=== PATIENT | female | born 1980 | race Caucasian/White ===

== ENCOUNTER 2017-08-26 23:06 | Emergency (ER) | payer MEDICAID ==
[2017-08-26] MEDS ORDERED: NS 1,000 ML IV ONE (23:21)
[2017-08-26] MEDS ORDERED: HYOSCYAMINE SULFATE 0.125 MG TAB PO ONE (23:27)
[2017-08-26] MEDS ORDERED: MAG HYDROX/AL HYDROX/SIMETH 30 ML UDCUP PO ONE (23:27)
[2017-08-26] MEDS ORDERED: LIDOCAINE 2% VISCOUS 15 ML UDCUP PO ONE (23:27)
--- NOTE | 2017-08-26 23:27 | EDPHY ---
H & P Stated Complaint: dizzy, SOB, chest palpitaions, pressure HPI/ROS: HPI CHIEF COMPLAINT: Chest pain, shortness of breath, epigastric pain HISTORY OF PRESENT ILLNESS: Patient very pleasant 37-year-old female does have a history of thyroid disease she presents emergency room with epigastric discomfort she describes as an achy sensation. It is reproducible on exam. When you press in her epigastric region it causes her discomfort. She states this discomfort goes into her chest. She states she feels anxious and has associated shortness of breath with this. Additionally reports palpitations. She denies pleuritic pain. Denies vomiting. Denies pleuritic pain. Denies diarrhea. Patient denies previous cardiovascular disease. Patient reports that her epigastric and chest pain discomfort started right around dinner time. 9:00 p.m. she had a hot dog, additionally she had guacamole and chips. Past Medical History: Thyroid disease Past Surgical History: No recent surgery Social History: Denies daily use drugs alcohol tobacco products. Family History: Noncontributory ROS REVIEW OF SYSTEMS: A comprehensive 10 point review of systems is otherwise negative aside from elements mentioned in the history of present illness. Exam Constitutional appears well nontoxic, slightly anxious triage nursing summary reviewed, vital signs reviewed, awake/alert. Eyes normal conjunctivae and sclera, EOMI, PERRLA. HENT normal inspection, atraumatic, moist mucus membranes, no epistaxis, neck supple/ no meningismus, no raccoon eyes. Respiratory clear to auscultation bilaterally, normal breath sounds, no respiratory distress, no wheezing. Cardiovascular rate normal, regular rhythm, no murmur, no edema, distal pulses normal. Gastrointestinal tender palpation epigastric right upper quadrant,, no rebound , no guarding, normal bowel sounds, no distension, no pulsatile mass. Genitourinary no CVA tenderness. Musculoskeletal no midline vertebral tenderness, full range of motion, no calf swelling, no tenderness of extremities, no meningismus, good pulses, neurovascularly intact. Skin pink, warm, & dry, no rash, skin atraumatic. Neurologic awake, alert and oriented x 3, AAOx3, moves all 4 extremities equally, motor intact, sensory intact, CN II-XII intact, normal cerebellar, normal vision, normal speech. Psychiatric anxious, normal mood/affect. Heme/Lymph/Immune no lymphadenopathy. Differential Diagnosis: Differential diagnosis includes but is not limited to and in no particular order: Bowel obstruction, appendicitis, gallbladder disease, diverticulitis, colitis, enteritis, perforated viscus, gastritis, GERD , esophagitis, urinary tract infection, pyelonephritis, kidney stones, ACS, atypical chest pain, pneumothorax, pneumonia, pulmonary embolism, aortic dissection, congestive heart failure, tumor, musculoskeletal pain, esophageal pain, GERD, peptic ulcer disease, pancreatitis Medical Decision Making: Plan for this patient IV establishment with IV fluid bolus, GI cocktail for chest discomfort to see if this improves her, ultrasound right upper quadrant and epigastric region, abdominal blood work. Re-evaluate. Obtain EKG and chest x-ray. Re-evaluation: EKG interpretation by me on record in [facility] system. Impression time of EKG 6: Sinus rhythm rate of 67. No acute ischemic change. Specifically no ST elevation no ST depression no T-wave abnormalities. Unremarkable EKG. Ultrasound of the right upper quadrant. The results of the study are gallbladder sludge present otherwise unremarkable ultrasound. I discussed the results of this study with the radiologist Dr. Best ED x-ray chest one view negative for acute cardiopulmonary disease. 0132: Re-evaluation this time patient resting. She does feel better after GI cocktail. Still has very mild epigastric pain 1/10 at this time. I have ordered her IV Pepcid and re-evaluation. Blood work has been reviewed is unremarkable except for mildly elevated lipase. Ultrasound shows gallbladder sludge but no stones. Most likely cause of pain is gastritis versus early pancreatitis versus gallbladder sludge. EKG interpretation by me on record in [email or web address] system. Impression repeat EKG ; 1:50 a.m., sinus rhythm rate of 60 no acute ischemic change appreciated. Repeat troponin is negative. Patient is feeling much better after IV Pepcid she is requesting discharge. Chest x-ray one view reviewed negative for acute cardiopulmonary disease. 0243: Re-evaluation at this time patient resting comfortably. She states she feels much better after IV Pepcid. She would like to go home. Prescription prescribed for Zantac Went over gallbladder disease with her. Additionally she understands return emergency room she develops worsening abdominal pain fever vomiting. Stay away from fatty greasy foods. She is agreeable this plan. Source: Patient - Personal History LMP (Females 10-55): Unknown Current Tetanus Diphtheria and Acellular Pertussis (TDAP): Unsure - Medical/Surgical History Hx Asthma: No Hx Chronic Respiratory Disease: No Hx Diabetes: No Hx Cardiac Disease: No Hx Renal Disease: No Hx Cirrhosis: No Hx Alcoholism: No Hx HIV/AIDS: No Hx Splenectomy or Spleen Trauma: No Other PMH: thyroid - Social History Smoking Status: Never smoked Constitutional: Initial Vital Signs Temperature (C) 36.9 C 08/26/17 23:11 Heart Rate 79 08/26/17 23:11 Respiratory Rate 18 08/26/17 23:11 Blood Pressure 105/70 08/26/17 23:11 O2 Sat (%) 98 08/26/17 23:11 O2 Delivery Mode Room Air Allergies/Adverse Reactions: amoxicillin Allergy (Verified 08/26/17 23:09) gluten Allergy (Verified 08/26/17 23:09) Sulfa (Sulfonamide Antibiotics) Allergy (Verified 08/26/17 23:09) Home Medications: Medication Instructions Recorded Ranitidine HCl [Zantac] 150 mg PO DAILY #30 tablet 08/27/17 Medical Decision Making - Diagnostics Imaging Results: Imaging Impressions Abdomen Ultrasound 08/26/17 23:21 Impression: Gallbladder sludge. No cholelithiasis, biliary dilation or free fluid. Findings discussed with Emergency Department physician, Hector Dave MD at 08/26/2017 23:52. Chest X-Ray 08/26/17 23:22 Impression: Clear lungs. Negative portable chest. - Data Points Laboratory Results: Laboratory Results 08/26/17 23:30 08/26/17 23:30 08/27/17 08/26/17 08/26/17 01:45 23:30 23:30 WBC RBC Hgb Hct MCV MCH MCHC RDW Plt Count MPV Neut % (Auto) Lymph % (Auto) Whitfield % (Auto) Eos % (Auto) Baso % (Auto) Nucleat RBC Rel Count Absolute Neuts (auto) Absolute Lymphs (auto) Absolute Monos (auto) Absolute Eos (auto) Absolute Basos (auto) Absolute Nucleated RBC Immature Gran % Immature Gran # PT 13.2 SEC SEC (12.0-15.0) INR 0.98 (0.83-1.16) APTT 29.2 SEC SEC (23.0-38.0) Sodium Potassium Chloride Carbon Dioxide Anion Gap BUN Creatinine Estimated GFR Glucose Calcium Total Bilirubin Conjugated Bilirubin Unconjugated Bilirubin AST ALT Alkaline Phosphatase Troponin I Pending Total Protein Albumin Lipase Beta HCG, Qual NEGATIVE 08/26/17 08/26/17 23:30 23:30 WBC 7.39 10^3/uL 10^3/uL (3.80-9.50) RBC 3.65 10^6/uL L 10^6/uL (4.18-5.33) Hgb 12.1 g/dL L g/dL (12.6-16.3) Hct 34.3 % L % (38.0-47.0) MCV 94.0 fL fL (81.5-99.8) MCH 33.2 pg pg (27.9-34.1) MCHC 35.3 g/dL g/dL (32.4-36.7) RDW 12.2 % % (11.5-15.2) Plt Count 277 10^3/uL 10^3/uL (150-400) MPV 10.0 fL fL (8.7-11.7) Neut % (Auto) 53.1 % % (39.3-74.2) Lymph % (Auto) 36.5 % % (15.0-45.0) Whitfield % (Auto) 7.2 % % (4.5-13.0) Eos % (Auto) 2.6 % % (0.6-7.6) Baso % (Auto) 0.5 % % (0.3-1.7) Nucleat RBC Rel Count 0.0 % % (0.0-0.2) Absolute Neuts (auto) 3.92 10^3/uL 10^3/uL (1.70-6.50) Absolute Lymphs (auto) 2.70 10^3/uL 10^3/uL (1.00-3.00) Absolute Monos (auto) 0.53 10^3/uL 10^3/uL (0.30-0.80) Absolute Eos (auto) 0.19 10^3/uL 10^3/uL (0.03-0.40) Absolute Basos (auto) 0.04 10^3/uL 10^3/uL (0.02-0.10) Absolute Nucleated RBC 0.00 10^3/uL 10^3/uL (0-0.01) Immature Gran % 0.1 % % (0.0-1.1) Immature Gran # 0.01 10^3/uL 10^3/uL (0.00-0.10) PT INR APTT Sodium 141 mEq/L mEq/L (135-145) Potassium 4.1 mEq/L mEq/L (3.5-5.2) Chloride 106 mEq/L mEq/L (97-110) Carbon Dioxide 25 mEq/l mEq/l (22-31) Anion Gap 10 mEq/L mEq/L (8-16) BUN 10 mg/dL mg/dL (7-23) Creatinine 0.8 mg/dL mg/dL (0.6-1.0) Estimated GFR > 60 Glucose 100 mg/dL mg/dL (70-100) Calcium 9.6 mg/dL mg/dL (8.5-10.4) Total Bilirubin 0.7 mg/dL mg/dL (0.1-1.4) Conjugated Bilirubin 0.1 mg/dL mg/dL (0.0-0.5) Unconjugated Bilirubin 0.6 mg/dL mg/dL (0.0-1.1) AST 32 IU/L IU/L (14-46) ALT 61 IU/L H IU/L (9-52) Alkaline Phosphatase 51 IU/L IU/L (38-126) Troponin I < 0.012 ng/mL ng/mL (0.000-0.034) Total Protein 7.0 g/dL g/dL (6.3-8.2) Albumin 4.3 g/dL g/dL (3.5-5.0) Lipase 358 IU/L H IU/L (23-300) Beta HCG, Qual Medications Given: Discontinued Medications Al Hydroxide/Mg Hydroxide (Maalox Susp) 30 ml PO ONCE ONE Stop: 08/26/17 23:28 Last Admin: 08/27/17 00:07 Dose: 30 ml Famotidine (Pepcid) 20 mg IVP EDNOW ONE Stop: 08/27/17 01:10 Last Admin: 08/27/17 01:28 Dose: 20 mg Hyoscyamine Sulfate (Levsin, Hyomax-Sl) 0.25 mg PO ONCE ONE Stop: 08/26/17 23:28 Last Admin: 08/27/17 00:17 Dose: Not Given Sodium Chloride (Ns) 1,000 mls @ 0 mls/hr IV EDNOW ONE; Wide Open PRN Reason: Protocol Stop: 08/26/17 23:22 Last Admin: 08/26/17 23:50 Dose: 1,000 mls Lidocaine (Lidocaine 2% Viscous) 15 ml PO ONCE ONE Stop: 08/26/17 23:28 Last Admin: 08/27/17 00:07 Dose: 15 ml Departure - Departure Disposition: Home, Routine, Self-Care Clinical Impression: Abdominal pain Qualifiers: Abdominal location: unspecified location Qualified Code(s): R10.9 - Unspecified abdominal pain Condition: Good Instructions: Acute Abdominal Pain (ED) Additional Instructions: 1. Return emergency room if he develops worsening abdominal pain fever or vomiting. 2. Zantac as prescribed. 3. Follow up with your primary care doctor. 4. Return if worse. 5. Stay away from fatty greasy foods. Referrals: Alex Roberts DO [Primary Care Provider] - As per Instructions Prescriptions: Ranitidine HCl [Zantac] 150 mg PO DAILY #30 tablet
--- NOTE | 2017-08-26 23:27 | CPEKG ---
Heart Rate: 67 RR Interval: 896 P-R Interval: 132 QRSD Interval: 82 QT Interval: 424 QTC Interval: 448 P Canmer: 65 QRS Canmer: 39 T Wave Canmer: 32 EKG Severity - NORMAL ECG - EKG Impression: SINUS RHYTHM Electronically Signed By: Hector Dave 27-Aug-2017 06:33:47
[2017-08-26 23:38] LABS: PLATELET COUNT 277 10^3/uL (150-400)
[2017-08-26 23:54] LABS: INR 0.98 (0.83-1.16); PROTIME(PATIENT) 13.2 SEC (12.0-15.0)
[2017-08-27] MEDS ORDERED: FAMOTIDINE 20 MG/2 ML SDV IVP ONE (01:09)
--- NOTE | 2017-08-27 01:53 | CPEKG ---
Heart Rate: 60 RR Interval: 1000 P-R Interval: 132 QRSD Interval: 88 QT Interval: 452 QTC Interval: 452 P Lancaster: 68 QRS Lancaster: 43 T Wave Lancaster: 42 EKG Severity - NORMAL ECG - EKG Impression: SINUS RHYTHM Electronically Signed By: Hector Dave 27-Aug-2017 06:33:47
[2017-08-27 03:07] VITALS: BP 107/69; PULSE 63; RESP 16; TEMP 98.2; O2SAT 95
== END 2017-08-27 03:07 | disposition home or self-care (01) ==
DX: R10.13 Epigastric pain (principal); E86.9 Volume depletion, unspecified; R10.11 Right upper quadrant pain
CPT/HCPCS: 96374

== ENCOUNTER → 2018-01-26 | Outpatient (CLI) | payer MEDICAID | LOC: FIMAGING 10:11 | PROVIDERS: ATTEND Nurse Practitioner Family | DX: E04.2 Nontoxic multinodular goiter (principal); E06.3 Autoimmune thyroiditis ==

== ENCOUNTER 2018-06-05 20:28 | Emergency (ER) | payer MEDICAID ==
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
[2018-06-05 21:45] VITALS: BP 93/59
== END 2018-06-05 21:45 | disposition home or self-care (01) ==
DX: R10.13 Epigastric pain (principal); E03.9 Hypothyroidism, unspecified